=== PATIENT | female | born 1955 | race Caucasian/White ===

== ENCOUNTER → 2019-03-04 | Outpatient (CLI) | payer OTHER ==
[~2019-03-04] MED LIST: LEVSOD100; Norco 5-325 Ta1 EACH PO
[2019-03-06 15:06] LABS: HPV 16 Negative (Negative); HPV 18 Negative (Negative); HPV OTHER HR TYPES Negative (Negative)
== END | disposition home or self-care (01) ==
LOC: LAB 12:32 → LAB SHORT 12:32
PROVIDERS: Obstetrics & Gynecology
DX: Z01.419 Encounter for gynecological examination (general) (routine) without abnormal findings (principal)
CPT/HCPCS: 87624; G0123

== ENCOUNTER 2021-06-19 14:40 | Inpatient (IN) | payer OTHER ==
[~2021-06-19] VITALS: Ht 167.6 cm; Wt 74.3 kg
[~2021-06-19 14:40] MED LIST changes: -LEVSOD100; +LEVSOD100 PO
[2021-06-19 15:16] LABS: BASOPHILS ABSOLUTE AUTO 0.01 K/mm3 (0.00-0.23); BASOPHILS PERCENT AUTO 0 % (0-2); EOSINOPHILS PERCENT AUTO 0 % (0-6); Hematocrit 43.7 % (33.0-51.0); Hemoglobin 15.2 g/dL (11.5-16.0); IMMATURE GRAN ABSOLUTE AUTO 0.05 K/mm3 (0.00-0.10); IMMATURE GRAN PERCENT AUTO 1 % (0-1); LYMPHOCYTES ABSOLUTE AUTO 0.48 K/mm3 (0.84-5.20); LYMPHOCYTES PERCENT AUTO 8 % (21-46); MONOCYTES ABSOLUTE AUTO 0.36 K/mm3 (0.16-1.47); MONOCYTES PERCENT AUTO 6 % (4-13); Mean Corpuscular HGB 30.2 pg (26.0-34.0); Mean Corpuscular HGB Conc 34.8 g/dL (31.5-36.5); Mean Corpuscular Volume 87 fL (80-100); Mean Platelet Volume 8.7 fL (9.1-12.4); NEUTROPHILS ABSOLUTE AUTO 5.25 K/mm3 (1.96-9.15); NEUTROPHILS PERCENT AUTO 85 % (41-73); Platelet Count 313 K/mm3 (150-400); RDW Coefficient Variation 13.2 % (11.7-14.2); RDW Standard Deviation 42.4 fL (35.1-46.3); Red Blood Cell Count 5.03 M/mm3 (3.80-5.20); White Blood Cell Count 6.15 K/mm3 (4.00-11.30)
[2021-06-19 15:31] LABS: Alanine Aminotransfer (ALT/SGP 185 U/L (12-78); Albumin/Globulin Ratio 0.7 (0.8-1.8); Alk Phos 149 U/L (50-136); Anion Gap 8 mmol/L (6-16); Aspartate Aminotrans (AST/SGOT 220 U/L (12-37); Bilirubin, Total 0.4 mg/dL (0.1-1.0); Blood Urea Nitrogen 8 mg/dL (8-24); Bun/Creatinine Ratio 15.2 (12.0-20.0); CO2, Blood 24 mmol/L (21-32); Calcium, Blood 9.8 mg/dL (8.5-10.1); Chloride, Blood 100 mmol/L (98-108); Creatinine, Blood 0.53 mg/dL (0.40-1.00); Globulin, Blood 4.2 g/dL (2.2-4.0); Glomerular Filtration Rate >60 (60-); Glucose, Blood 131 mg/dL (70-99); Potassium, Blood 3.2 mmol/L (3.5-5.5); Sodium, Blood 132 mmol/L (136-145); Total Protein, Blood 7.2 g/dL (6.4-8.2); Troponin I <0.015 ng/mL (0.000-0.040)
[2021-06-20 05:21] LABS: Alanine Aminotransfer (ALT/SGP 226 U/L (12-78); Albumin, Blood 2.8 g/dL (3.4-5.0); Albumin/Globulin Ratio 0.7 (0.8-1.8); Alk Phos 136 U/L (50-136); Anion Gap 7 mmol/L (6-16); Aspartate Aminotrans (AST/SGOT 234 U/L (12-37); Bilirubin, Total 0.4 mg/dL (0.1-1.0); Blood Urea Nitrogen 8 mg/dL (8-24); Bun/Creatinine Ratio 15.6 (12.0-20.0); CO2, Blood 24 mmol/L (21-32); Chloride, Blood 106 mmol/L (98-108); Creatinine, Blood 0.51 mg/dL (0.40-1.00); Globulin, Blood 3.9 g/dL (2.2-4.0); Glomerular Filtration Rate >60 (60-); Glucose, Blood 127 mg/dL (70-99); Potassium, Blood 3.7 mmol/L (3.5-5.5); Sodium, Blood 137 mmol/L (136-145); Total Protein, Blood 6.7 g/dL (6.4-8.2)
--- NOTE | 2021-06-20 06:11 | NUR ---
SHIFT SUMMARY ASUMED CARE OF PT AT 2230. PT IS A/OX4. HEART SOUNDS REGULAR. LUNG SOUNDS HAVE CRACKLES T/O. PT CAME TO THE UNIT ON THE AIRVO AND A NONREBREATHER MASK BEUCASE SHE COULD NOT TOLERATE THE BIPAP IN THE ED. PT HAS NOW BEEN TITRATED DOWN TO 90% ON JUST THE AIRVO. PT IS A 1P ASSIT TO BSC. PT WILL DESATURATE TO 86% BUT WILL RETURN TO 90% QUICKLY. PT C/O DIARRHEA. PT URINE IS CLEAR AND YELLOW. PT C/O NOT SLEEPING AND REQUESTED ATIVAN TO HELP HER GO BACK TO SLEEP. CALL LIGHT IN REACH, BED IN LOWEST POSTION.
--- NOTE | 2021-06-20 10:41 | NUR ---
CARE ASSUMPTION PATIENT ALERT AND ORIENTATED X4. VSS. SPO2 >90% ON OXYMIZER 55L 90%. PATIENT BECOMES SHORT OF BREATH WHEN CHANGING POSITIONS AND TRANSFERED FROM BED TO CHAIR. PATIENT DROPS INTO MID 80S AND RECOVERYS QUICKLY BACK INTO 90S. PATIENT IS CURRENTLY SITTING IN THE CHAIR AT BEDSIDE WITH CALL LIGHT WITHIN REACH. PATIENT HAS DIM CRACKLES LOWER LOBES BILATERALLY. PATIENT REPORTS NO CHEST PAIN TELE SR 70S. WILL CONTINUE TO MONITOR AND PROVIDE CARE.
--- NOTE | 2021-06-20 18:36 | NUR ---
SHIFT SUMMARY PATIENT ALERT AND ORIENTATED X4. VSS. SPO2 >90% ON AIRVO 50L 70%. TELE SR 70S. PATIENT HAS BEEN SITTING IN CHAIR AT BEDSIDE. PATIENT WILL AMBULATE TO BEDSIDE COMODE SBA. PATIENT WILLL DESAT INTO MID TO HIGH 80S WHEN TRANSFERING, BUT RECOVERS QUICKLY. CALL LIGHT WITHIN REACH. WILL CONTINUE TO MONITOR AND PROVIDE CARE UNTIL HAND OFF WITH NEXT SHIFT.
[2021-06-21 04:15] LABS: Hemoglobin 13.8 g/dL (11.5-16.0); Mean Corpuscular HGB 30.1 pg (26.0-34.0); Mean Corpuscular HGB Conc 32.9 g/dL (31.5-36.5); Mean Platelet Volume 8.7 fL (9.1-12.4); Platelet Count 346 K/mm3 (150-400); RDW Coefficient Variation 13.3 % (11.7-14.2); RDW Standard Deviation 45.6 fL (35.1-46.3); Red Blood Cell Count 4.58 M/mm3 (3.80-5.20); White Blood Cell Count 6.44 K/mm3 (4.00-11.30)
[2021-06-21 04:47] LABS: Alanine Aminotransfer (ALT/SGP 171 U/L (12-78); Albumin, Blood 2.6 g/dL (3.4-5.0); Albumin/Globulin Ratio 0.7 (0.8-1.8); Alk Phos 119 U/L (50-136); Anion Gap 6 mmol/L (6-16); Aspartate Aminotrans (AST/SGOT 110 U/L (12-37); Bilirubin, Total 0.4 mg/dL (0.1-1.0); Blood Urea Nitrogen 11 mg/dL (8-24); Bun/Creatinine Ratio 21.9 (12.0-20.0); CO2, Blood 23 mmol/L (21-32); Calcium, Blood 8.9 mg/dL (8.5-10.1); Chloride, Blood 104 mmol/L (98-108); Globulin, Blood 3.5 g/dL (2.2-4.0); Glomerular Filtration Rate >60 (60-); Glucose, Blood 96 mg/dL (70-99); Mean Corpuscular Volume 92 fL (80-100); Potassium, Blood 3.8 mmol/L (3.5-5.5); Sodium, Blood 133 mmol/L (136-145); Total Protein, Blood 6.1 g/dL (6.4-8.2)
--- NOTE | 2021-06-21 06:27 | NUR ---
SHIFT SUMMARY NO ACUTE CHANGES THIS SHIFT. PT A&OX4. SP02>92% ON AIRVO, 50L , 70% FI02. DENIES SOB BUT C/O OF DRY MOUTH. TELEMETRY READS NSR, HR 70'S. PT DENIES PAIN. UP ON CHAIR TO SLEEP THE ENTIRE SHFIT, DID NOT WANT TO GO TO THE BED OR REPOSITION. PT UP TO BSC THIS SHFIT TO VOID. CALL LGIHT IN REACH. WILL GIVE REPORT TO ONCOMING NURSE.
--- NOTE | 2021-06-21 09:00 | NUR ---
ASSUMED CARE: REPORT RECEIVED FROM CISCO Arriaza RN. ASSUMED CARE OF THIS PT AT APPROX 0700. ON ASSESSMENT, THE PT IS SITTING UP IN THE RECLINER, A&O TO ALL. SHE STS COMFORT & THAT HER "BREATHING IS THE BEST" WHEN SITTING UP IN THE CHAIR. LS ARE DIM T/O, PT ON AIRVO W/ SETTINGS: 50 L/MIN & 70% FIO2 W/ O2 SATS > 92% ON AVG, DESATS TO 87% NOTED W/ INCREASED ACTIVITY. TELE SHOWS SR W/ HR 60-70s, BP STABLE. THE PT HAS NO GI COMPLAINTS & IS TOLERATING PO INTAKE WELL. DIET ORDER CHANGED BY THIS RN TO REFLECT PT's WISHES OF BITE SIZED FOOD & GLUTEN-FREE DIET. SHE VOIDS W/O DIFFICULTY USING BSC, SBA FOR TX. SKIN CONDITION OVERALL INTACT, PT ENCOURAGED TO REPOSITION SELF IN CHAIR BUT STS MOST COMFORTABLE WHEN SITTING STRAIGHT UP. SHE IS REQUESTING TO WORK W/ PHYSICAL THERAPY SHE IS NORMALLY VERY ACTIVE AT HOME, WILL ADDRESS W/ PROVIDER. WILL CONTINUE TO MONITOR & UPDATE NEEDED.
--- NOTE | 2021-06-21 18:38 | NUR ---
SHIFT SUMMARY: NO ACUTE CHANGES SINCE PRIOR UPDATES. PT REMAINS A&O, COOPERATIVE W/ CARE. SHE IS SOMEWHAT PARTICULAR ABOUT CARE BUT OVERALL PLEASANT. PT ON AIRVO W/ SETTINGS: 50 L/MIN & 65% FIO2, O2 SATS > 92% ON AVG, DESATS TO 86% W/ EXERTION. MONITOR SHOWS SR W/ HR 70s, BP STABLE. PT HAS NO GI COMPLAINTS & IS TOLERATING PO INTAKE WELL. VOIDS URINE W/O DIFFICULTY USING BSC. SBA W/ FWW FOR TX. SKIN CONDITION OVERALL INTACT, PT IS ENCOURAGED TO REPOSITION SELF IN RECLINER CHAIR T/O THE SHIFT BUT STS PREFFERING TO SIT STRAIGHT UP W/ PILLOWS SUPPORT. WILL CONTINUE TO MONITOR & REPORT OFF TO ONCOMING RN.
--- NOTE | 2021-06-22 07:16 | NUR ---
SHIFT SUMMARY PT A&O X4. VSS. MONITOR SHOWING SR, HR 60's-80's. SPO2 > 92% ON AIRVO 50L, FIO2 66%. PT DESATING TO MID 80's W/ AMBULATION TO BSC REQUIRING INCREASE IN FIO2 TO 75%. PT REPORTING 9/10 R CHEST "BURNING" IMMEDIATELY AFTER COUGHING, STATING "IT'S LIKE A VOLCANO ERUPTING." PT REPORTS PAIN SUBSIDED TO A 3/10 SHORTLY AFTER COUGHING SUBSIDED. PT MEDICATED W/ PRN TYLENOL X2 THIS SHIFT PER PT REQUEST W/ FURTHER IMPROVEMENT. BLE EDEMA. PT ENCOURAGED TO KEEP BLE ELEVATED.
[2021-06-22 08:10] LABS: HBSAG SCREEN Negative (Negative); HEP B CORE AB, TOT Negative (Negative); HEP C VIRUS AB <0.1 (0.0-0.9)
--- NOTE | 2021-06-22 09:50 | NUR ---
ASSUMED CARE: REPORT RECEIVED FROM DARI Arriaza RN. ASSUMED CARE OF THIS PT AT APPROX 0700. ON ASSESSMENT, THE PT IS AWAKE, A&O TO ALL. SHE DENIES ANY CURRENT PAIN BUT DOES STATE HAVING A "BURNING" SENSATION IN HER R UPPER CHEST WHILE COUGHING THAT RESOLVES QUICKLY AFTER. LS DIM T/O, PT ON AIRVO W/ SETTINGS: 50 L/MIN & 65% FIO2. O2 SATS > 90% ON AVG, DESATS TO 86% W/ EXERTION. MONITOR SHOWS SR W/ HR 70s, BP STABLE. 2+ DEPENDENT EDEMA TO BLE, PT STS WEARING COMPRESSION STOCKINGS AT HOME. THE PT HAS NO GI COMPLAINTS, IS TOLERATING PO INTAKE WELL. VOIDS W/O DIFFICULTY USING BSC. SBA FOR TRANSFERS. SKIN CONDITION OVERALL INTACT, PT UP IN RECLINER, ALTERNATING BETWEEN SITTING UP STRAIGHT & LAYING BACK W/ FEET ELEVATED. WILL CONTINUE TO MONITOR & UPDATE NEEDED.
--- NOTE | 2021-06-22 10:25 | NUR ---
DR JAQUEZ: PROVIDER AT BEDSIDE TO EVAL PT. STS OKAY TO BE MEDICAL FLOOR STATUS W/ TELE AT THIS TIME. NO OTHER CHANGES.
--- NOTE | 2021-06-22 13:36 | NUR ---
TRANSFER TO ROOM 314: REPORT GIVEN TO EZEKIEL Medina RN TO ASSUME CARE. PT TRANSFERRED TO ROOM 314 AT APPROX 1320 VIA BY THIS RN & JOE BORREGO. CHART, ALL BELONGINGS & AIRVO HAVE BEEN TAKEN UP W/ THE PT AT THAT TIME.
--- NOTE | 2021-06-22 19:25 | NUR ---
PATIENT IS ALERT AND OREINTED. SHE CALLS APPROPRIATELY. SBA TO THE BSC. UP IN THE RECLINER. MARYCRUZ HOSE PLACED. HEATING PAD GIVEN TO THE PATIENT. AIRVO 60L
--- NOTE | 2021-06-23 06:41 | NUR ---
SHIFT SUMMARY ASSUMED CARE OF PT AT 1900. PT IS A/OX4. HEART SOUNDS REGULAR, LUNG SOUNDS HAVE CRACKLES AT THE BASES. PT IS ON AIRVO 50L @ 90%. PT GOT A NOSE BLEED THIS AM. PT WAS CONTINENT TO BSC. INDEPENDENT IN ROOM. CALL LIGHT IN REACH, BED IN LOWEST POSTION.
--- NOTE | 2021-06-23 17:32 | NUR ---
SHIFT SUMMARY PT IS AO. PT IS INDEPENDENT IN ROOM. PT REMAINS ON AIRVO WITH SATS GREATER THAN 90%. ENHANCED ISOLATION PRECUATIONS MAINTAINED T/O SHIFT. PT APPETITE IS GOOD. PT SEEN BY PT/OT TODAY. NO PROCEDURES DONE. PT IS IN BED, CALL LIGHT IN REACH, LOW POSITION.
--- NOTE | 2021-06-23 19:53 | NUR ---
PULSE OX CURRENTLY NOT DISPLAYING. CHIP WITH RED FLASHING LIGHT. RT WAS CONTACTED AND STATES "I AM NOT CONCERNED ABOUT HER PULSE OX RIGHT NOW SO I WILL CHECK IT LATER". BRACELET LEFT ON PT. PT CURRENTLY ON AIRVO - NO COMPLAINTS OF SOB.
--- NOTE | 2021-06-24 05:16 | NUR ---
FACIALIST SUMMARY AT HS, VOICED DISCOMFORT WITH LEFT AC IV. IV SITE SLIGHTLY DISCOLORED. IV SITE REMOVED. HAS BEEN AWAKE AT INTERVALS THROUGHOUT SHIFT. VOICED HEADACHE AT MIDNIGHT AND REQUESTED/RECEIVED TYLENOL ORDERED - SEE MAR FOR DETAILS. MED TELE SINUS RHYTHM IN THE 80'S. CALL LIGHT IN REACH. ISOLATION PRECAUTIONS MAINTAINED
--- NOTE | 2021-06-24 17:20 | NUR ---
SHIFT SUMMARY PT IS AOX4. PT DENIES PAIN THIS SHIFT. PT DENIES SOB, N/V. PT IS TEARFUL THIS JOSE MIGUEL DUE TO LEARNING HER IS INTUBATED IN ICU. PT IS ON 15 L VIA VENTURI MASK AND 5 L VIA NC. PT APPETITE IS GOOD. PT IS INDEPENDENT IN ROOM. ENHANCED ISOLATION PRECUATIONS MAINTAINED T/O SHIFT. PT IS IN CHAIR, CALL LIGHT IN REACH, LOW POSITION.
--- NOTE | 2021-06-24 17:34 | NUR ---
Received a phone call from nursing that pt's who is also in the hospital with COVISABELLA had been urgently intubated and requested PC support for Ashley. Visited with Ashley this afternoon. She states that she understands that her is now on a ventilator and that he will be unable to talk at this time. Answered her questions. She reports that she is improving and that she will likely be going home in the next couple of days. She requested that I contact her son and DIL (Jerry and Berkley) in [place] and provide an update. Spoke with both Jerry and Berkley and updated them on current status of Ashley and of her Ernesto. Answered questions. PC to visit with Ashley and update her on Ernesto's status. Jerry and Berkley requested daily updates from PC nurses on both Ernesto and Ashley. PC to continue to follow for support and advanced care planning as needed.
--- NOTE | 2021-06-24 20:35 | NUR ---
YANIV IN ICU, ON VENT. NOT DOING WELL. INDUSTRIAL PARAMEDIC ESCORTED PT TO VISIT AT THIS TIME. PT ON NON REBREATHER WITH O2 BLEED IN. ISOLATION PRECAUTIONS MAINTAINED.
--- NOTE | 2021-06-25 02:03 | NUR ---
EARLIER, NEAR SHIFT COMMENCE, TATTOO ARTIST ASSISTED PT TO ICU TO SEE HER SPOUSE HE WAS DYING. LATER, SPOUSE PASSED. PT SPOKE WITH PASTORAL PERSON RE SPOUSE PASSING. LATER PT ASKED ME TO SPEAK WITH HER FAMILY TO NOTIFY THEMN OF HER SPOUSE PASSING. MULTIPLE NUMBERS CALLED, BUT ONLY ONE PICKED UP, HER GRANDSON, HE WAS NOTIFIED AND SAID HE WOULD NOTIFY HIS FAMILY MEMBERS. PT AFFECT FLAT, WILL CONTINUE TO MONITOR. CALL LIGHT IN REACH
--- NOTE | 2021-06-25 04:48 | NUR ---
C ARCHITECT SUMMARY PT'S LAST EVENING AFTER PT SPENT SOME TIME IN THE ICU VISITING HIM WITH THE HELP OF THE PLANT PROTECTION SUPERVISOR. PT QUIET, NO NOTED CRYING, BUT REATHER FLAT AFFECT MUCH OF THE SHIFT AFTER . PT REQUESTED NURSE NOTIFY HER FAMILY OF SAID PASSING, GRAND SON NOTIFIED AND SAID HE WOULD NOTIFY THE REST OF THEIR FAMILY. PT REMAINS ON NON REBREATHER AND O2 BLEED IN. SPENT NIGHT IN RECLINER CHAIR TO SLEEP. CALL LIGHT IN REACH. ISOLATOIN PRECAUTIONS MAINTAINED
--- NOTE | 2021-06-25 11:41 | NUR ---
Introduction: RN and doctor asked if I would see pt. Assessment: Pt presented sitting up in chair alert and oriented to visit. Pt presented somewhat anxious and said,"I'm going home today or tomorrow." Pt continued to to say that "she feels that no one attends to the many times she pressess the button for help from a nurse and said she feels she has been fussed at in the evenings to not call the nurse or use her phone." Pt did seem a little confused. PT asked me for my buisness card. Intervention: Culativated a relationship of care and support. Listened to pt and provided support and encouragement. Follow up: Follow up for emotional and spiritual support as needed or requested.
--- NOTE | 2021-06-25 11:49 | NUR ---
Introduction: PT refered by Spiritual Care staff. Assessment: PT presented seated in chair, diligently working on improved breathing, just prior to a room change. PT hand signaled that speaking was difficult and motioned for prayer. Intervention: PT was offered a prayer. Outcome: PT recieved a prayer. Follow-up: As needed or requested. PT requested a visit, same time tomorrow.
--- NOTE | 2021-06-25 18:10 | NUR ---
SHIFT SUMMARY PT IS AO BUT EXHIBITS SOME CONFUSION THIS SHIFT. PT DENIES PAIN, N/V, SOB. PT IS 98% ON 5 L NC AND NONREBREATHER. PT APPETITE IS GOOD. ENHANCED ISOLATION PRECUATIONS MAINTAINED T/O SHIFT. SCIENCE EDUCATION PROFESSOR AND PALLIATIVE IN TO VISIT PT THIS SHIFT. PT IS INDEPENDENT TO [facility]. PT IS TEARFUL AT TIMES WHEN DISCUSSING WITH SCIENCE EDUCATION PROFESSOR. PT IS IN BED, CALL LIGHT IN REACH, LOW POSITION.
--- NOTE | 2021-06-25 18:29 | NUR ---
Met with pt today. She immediately told me that her room is flooding each night with about 2 inches of water, and dry by morning. She also tells me she is leaving tomorrow to her son's home. She also asked if I could find out what her 's dying words were, as she will be placing "plaques all over the town". I discussed this with patient's sons as well as Dr Mcdonald. Per sons, this is not patient's baseline. She is usually alert and oriented. It seems likely some of this is caused by lack of sleep and shock that her less than 24 hours ago here in the same hospital as she is in. gave vo for 1 time isa rios for sleep. Planning to reevaluate in the am and if no change, place psych consult. Will remain in touch with family.
[2021-06-26 05:30] LABS: Albumin, Blood 3.1 g/dL (3.4-5.0); Anion Gap 6 mmol/L (6-16); Blood Urea Nitrogen 13 mg/dL (8-24); Bun/Creatinine Ratio 24.3 (12.0-20.0); CO2, Blood 27 mmol/L (21-32); Calcium, Blood 9.6 mg/dL (8.5-10.1); Chloride, Blood 101 mmol/L (98-108); Creatinine, Blood 0.54 mg/dL (0.40-1.00); Glomerular Filtration Rate >60 (60-); Glucose, Blood 87 mg/dL (70-99); Phosphorus, Blood 2.5 mg/dL (2.5-4.9); Potassium, Blood 3.5 mmol/L (3.5-5.5); Sodium, Blood 134 mmol/L (136-145)
--- NOTE | 2021-06-26 06:32 | NUR ---
SHIFT SUMMARY PATIENT ALERT AND ORIENTED. HAD NO COMPLAINTS OF PAIN. O2 TITRATED DOWN TO 3 LITERS VIA NC. DID GET SHORT OF BREATH AND DESATURATED TO ABOUT 85 UPON EXHERTION TO BEDSIDE COMMODE. CALL LIGHT WITHIN REACH. REPORT GIVEN TO ONCOMING RN.
--- NOTE | 2021-06-26 11:09 | NUR ---
Introduction: PT refered by Palliative Care. Assessment: PT presented seated in chair, with a tired look. PT stated, "I will be leaving soon, to stay with my daughter in law in [place]." PT seemed upset that daughter in law would not necessarily agree to this arrangement, upon discharge. PT was insistent upon writing a letter to her husbands place of employment, as a form of testimony. PT throughout visit would go between distressed, agitated and blissful. When asked if PT had gotten any rest PT replied,"No". Intervention: Offered PT prayer. Offered PT neck pillow, in order to rest at the chair. Outcome: PT accepted offer of prayer. PT accepted offer of pillow and stated,"I will try to rest." Follow-up: As needed or requested.
--- NOTE | 2021-06-26 16:04 | NUR ---
PT AOX3 AND COOPERATIVE OF CARE.PT STILL SEEMS TO BE MILDLY CONFUSED. PT HAS BEEN VERY EMOTIONAL DUE TO LOSS OF . PT HAS HAD SUPPORT NEEDED THROUGHOUT SHIFT. PT CALLS APPROPRIATELY WILL CONTINUE TO MONITOR.
--- NOTE | 2021-06-27 06:42 | NUR ---
SHIFT SUMMARY PATIENT ALERT AND ORIENTED. HAD NO COMPLAINTS OF PAIN OR SHORTNESS OF BREATH. NO ACUTE ISSUES NOTED OVERNIGHT. CALL LIGHT WITHIN REACH. REPORT GIVEN TO ONCOMING RN.
[2021-06-27] MEDS ORDERED: DEXA6 PO (13:55)
[2021-06-27] MEDS ORDERED: Acetaminophen650 M1 PO (13:55)
[2021-06-27] MEDS ORDERED: PANT20 PO (13:59)
[2021-06-27] MEDS ORDERED: VITAMIN D31000 UNI1 PO (14:00)
--- NOTE | 2021-06-27 17:30 | NUR ---
PT DISCHARGED AT 1610 WITH ALL PAPERWORK REVIEWED AND EDUCATIONAL MATERIAL SENT. PT A0X4 AND COOPERATIVE OF CARE. PT WENT HOME ON 3 L OF O2 AND A TANK WAS BROUGHT TO ROOM PRIOR TO DISCHARGE. PT HAD BEEN CALLING APPROPRIATELY AND WAS INDEPENDENT TO BEDSIDE COMMODE. PT HAD SON TO TRANSPORT HOME. INSTRUCTED TO DRIVERS' CASH CLERK O2 MACHINE AT [facility] ON THE WAY HOME. PT AND SON VERBALIZED UNDERSTANDING.
== END 2021-06-27 15:30 | disposition home health service (06) | DRG 871 ==
LOC: ER 14:40 → MEDS 16:49 → PCU 16:49 → ER 16:49 → ERHOLD 16:49 → PCU 22:10 → MEDS 06-22 13:42
PROVIDERS: Internal Medicine; Physician Assistant; ADMIT Hospitalist
PROC: 3E0333Z Introduction of Anti-inflammatory into Peripheral Vein, Percutaneous Approach (ICD-10-PCS; principal; 2021-06-19)
PROC: 8E0ZXY6 Isolation (ICD-10-PCS; 2021-06-19)
PROC: 5A0955A Assistance with Respiratory Ventilation, Greater than 96 Consecutive Hours, High Flow/Velocity Cannula (ICD-10-PCS; 2021-06-19)
PROC: 5A09357 Assistance with Respiratory Ventilation, Less than 24 Consecutive Hours, Continuous Positive Airway Pressure (ICD-10-PCS; 2021-06-19)
PROC: XW033E5 Introduction of Remdesivir Anti-infective into Peripheral Vein, Percutaneous Approach, New Technology Group 5 (ICD-10-PCS; 2021-06-20)
DX: A41.89 Other specified sepsis (principal); U07.1 COVID-19; J12.82 Pneumonia due to coronavirus disease 2019; J96.01 Acute respiratory failure with hypoxia; K72.00 Acute and subacute hepatic failure without coma; E87.1 Hypo-osmolality and hyponatremia; R65.20 Severe sepsis without septic shock; E88.09 Other disorders of plasma-protein metabolism, not elsewhere classified; E03.9 Hypothyroidism, unspecified; T37.4X5A Adverse effect of anthelminthics, initial encounter; E87.6 Hypokalemia; R74.01 Elevation of levels of liver transaminase levels; Z88.1 Allergy status to other antibiotic agents; Z88.5 Allergy status to narcotic agent; Z90.89 Acquired absence of other organs; Z98.890 Other specified postprocedural states
CPT/HCPCS: 36415; 71045; 76705; 80048; 80053; 80069; 84145; 84484; 85025; 85027; 86704; 86708; 86803; 87340; 93005; 93010; 94762; 96374; 96375; 97110; 97112; 97116; 97161; 97530; 99285-25; A9270; C9113; J1100; J1650; J2060; J7030